=== PATIENT | male | born 1985 | race Caucasian/White ===

== ENCOUNTER 2019-12-25 11:00 | Emergency (ER) | payer OTHER ==
[~2019-12-25] VITALS: Ht 185.4 cm; Wt 95.0 kg
[2019-12-25 11:10] VITALS: BP 132/87
--- NOTE | 2019-12-25 11:13 | PHYS DOC ---
Past History Past Medical History: No Pertinent History Adult General Chief Complaint Chief Complaint: SWALLOWED FORIEGN BODY [facility] HPI Patient is a 34-year-old male who presents for suspected foreign body ingestion. Patient reports noticing missing wire in right bottom posterior mouth in between teeth #28 and 31, he fears he ingested this accidentally during sleep. Denies any symptom since onset 48 hours ago. Reports having streak of red in stool today, no residual blood in toilet or in water, no pain on wiping or blood on toilet paper. This concerned patient of suspected ingestion and presented for evaluation as he does not have PCP as he recently relocated to the area. He is otherwise healthy, denies any recent febrile illness, no COVID-19 suspects, no medications taken daily, no blood thinners Review of Systems Review of Systems Fourteen body systems of review of systems have been reviewed. See HPI for pertinent positives and negative responses, other srinivasan all other systems are negative, non-pertinent or non-contributory Physical Exam Physical Exam Constitutional: Well developed, well nourished, no acute distress, non-toxic appearance. [] HENT: Normocephalic, atraumatic, bilateral external ears normal, oropharynx moist, no oral exudates, nose normal. Dental braces present, missing bracket as noted in HPI, no oral or perioral abnormalities or trauma noted [] Eyes: PERRLA, EOMI, conjunctiva normal, no discharge. [] Neck: Normal range of motion, no tenderness, supple, no stridor. [] Cardiovascular:Heart rate regular rhythm, no murmur [] Lungs & Thorax: Bilateral breath sounds clear to auscultation [] Abdomen: Bowel sounds normal, soft, no tenderness, no masses, no pulsatile masses. [] Skin: Warm, dry, no erythema, no rash. [] Back: No tenderness, no CVA tenderness. [] Extremities: No tenderness, no cyanosis, no clubbing, ROM intact, no edema. [] Neurologic: Alert and oriented X 3, normal motor function, normal sensory function, no focal deficits noted. [] Psychologic: Affect normal, judgement normal, mood normal. [] EKG EKG [] Radiology/Procedures Radiology/Procedures [] Course & Med Decision Making Course & Med Decision Making Airway breathing and circulation grossly unremarkable Comprehensive history and physical exam obtained, no clinical indication for further diagnostic work-up or intervention based on the above Patient well-appearing, healthy male, here for suspected ingestion of less than 1.5 cm metal wire from his dental braces. Reports ~48 hours later trace blood within stool with no other rectal abnormalities I discussed and offered further diagnostic work-up such as imaging, laboratory analysis to evaluate for anemia, and rectal exam. I discussed low likelihood of these examinations and fact that there was no concern for any corrosive foreign body such as a battery that would require further GI or surgical intervention, management would not change Given discussion above, patient declined given that he is asymptomatic, he just " wanted to make sure I was okay" Patient does not have PCP set up in local area, I have educated him on importance of this and follow-up in upcoming 1 to 7 days. 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 Departure Departure: Impression: Primary Impression: Ingestion of foreign body Disposition: HOME/RESIDENCE PRIOR TO ADM Condition: STABLE Additional Instructions: As discussed prior to your ER departure, there is no concerning history or physical exam findings indicating need for advanced diagnostic work-up or intervention I recommend you call the on post primary care physician to establish follow-up and to establish care in upcoming 1 to 7 days time Please return to our ER in the interim if you experience any concerning symptoms such as fever, chills, chest pain, shortness of breath, abdominal pain, changes in stool pattern, rectal bleeding or other symptoms that concern you It was a pleasure to take care of you and we wish you the best! Justification of Admission: Justification of Admission: Justification of Admission Dx: N/A JEANNETTE BOSE DO Dec 25, 2019 11:13
== END 2019-12-25 11:50 | disposition home or self-care (01) ==
LOC: ER 11:00
DX: T18.9XXA Foreign body of alimentary tract, part unspecified, initial encounter (principal); X58.XXXA Exposure to other specified factors, initial encounter; Y93.89 Activity, other specified; Y92.89 Other specified places as the place of occurrence of the external cause; Y99.8 Other external cause status
CPT/HCPCS: 99281